=== PATIENT | female | born 1995 | race Caucasian/White ===

== ENCOUNTER 2020-05-27 15:02 | Emergency (ER) | payer OTHER ==
[~2020-05-27] VITALS: Ht 160 cm; Wt 55.9 kg
[~2020-05-27 15:02] MED LIST: MAPA500T2 PO; MOTR200T44 PO
[2020-05-27 17:38] VITALS: BP 128/77
== END 2020-05-27 17:41 | disposition home or self-care (01) ==
LOC: M ED 15:02
DX: F43.0 Acute stress reaction (principal); F32.9 Major depressive disorder, single episode, unspecified

== ENCOUNTER → 2021-11-29 | Outpatient (REF) | payer OTHER | LOC: M LAB REF 17:12 | PROVIDERS: ATTEND Internal Medicine Endocrinology, Diabetes & Metabolism | DX: E04.2 Nontoxic multinodular goiter (principal) ==

== ENCOUNTER 2022-03-29 11:42 | Inpatient (IN) | payer OTHER ==
[~2022-03-29] VITALS: Ht 157.5 cm; Wt 52.4 kg
[2022-03-29 14:10] LABS: HEMATOCRIT 40.1 % (36.0-47.0); HEMOGLOBIN 13.2 g/dl (12.0-15.5); MEAN CORPUSCULAR HGB CONC 32.9 g/dl (32.0-36.5); MEAN CORPUSCULAR VOLUME 88.1 fl (80.0-96.0); PLATELET COUNT, AUTOMATED 398 10^3/uL (150-450); RED BLOOD COUNT 4.55 10^6/uL (4.00-5.40); WHITE BLOOD COUNT 8.8 10^3/uL (4.0-10.0)
[2022-03-29 14:29] LABS: HCG, SERUM QUALITATIVE NEGATIVE (NEGATIVE)
[2022-03-29 14:33] LABS: AMPHETAMINES LEVEL URINE NEGATIVE (NEGATIVE); BARBITURATES URINE NEGATIVE (NEGATIVE); BENZODIAZEPINES URINE NEGATIVE (NEGATIVE); CANNABINOIDS URINE POSITIVE (NEGATIVE); COCAINE METABOLITE URINE NEGATIVE (NEGATIVE); METHADONE URINE NEGATIVE (NEGATIVE); OPIATES URINE NEGATIVE (NEGATIVE); PHENCYCLIDINE URINE NEGATIVE (NEGATIVE)
[2022-03-29 14:46] LABS: ACETAMINOPHEN LEVEL < 2.0 UG/ML (10.0-30.0); ALT/SGPT 27 U/L (12-78); BILIRUBIN,DIRECT < 0.1 MG/DL (0.0-0.2); BILIRUBIN,TOTAL 0.2 MG/DL (0.2-1.0); BLOOD UREA NITROGEN 8 MG/DL (7-18); CALCIUM LEVEL 8.9 MG/DL (8.5-10.1); CARBON DIOXIDE LEVEL 30 MEQ/L (21-32); CHLORIDE LEVEL 107 MEQ/L (98-107); CREATININE FOR GFR 0.67 MG/DL (0.55-1.30); ETHYL ALCOHOL (ETHANOL) < 0.003 % (0.000-0.010); GLOMERULAR FILTRATION RATE > 60.0 (>60); GLUCOSE, FASTING 90 MG/DL (70-100); SALICYLATE LEVEL 2.9 MG/DL (5.0-30.0); SODIUM LEVEL 141 MEQ/L (136-145); THYROID STIMULATING HORMONE 0.106 uIU/ML (0.358-3.740); TOTAL PROTEIN 7.3 GM/DL (6.4-8.2)
[2022-03-29 15:57] LABS: RSV AMPLIFICATION NEGATIVE (NEGATIVE)
[2022-03-29] MEDS ORDERED: NICOTINE 21MG/24HR 1 EA TRANSDERMAL TD ONE (16:05)
[2022-03-29] MEDS ORDERED: DOXY100T PO (16:32)
[2022-03-29] MEDS ORDERED: QUET50TA4 PO (16:32)
[2022-03-29] MEDS ORDERED: MECL-86 PO (16:32)
[2022-03-29] MEDS ORDERED: HYDR-3363 PO (16:32)
[2022-03-29] MEDS ORDERED: CLON-412 PO (16:32)
[2022-03-29] MEDS ORDERED: NICO21DI37 TD (16:32)
[2022-03-29] MEDS ORDERED: QUET300T2 PO (16:32)
[2022-03-29] MEDS ORDERED: HOME MED LIST COMPLETE! XX SCH (16:50)
[2022-03-29] MEDS ORDERED: MOM 30ML SUSPENSION UDC PO PRN (17:55)
[2022-03-29] MEDS ORDERED: MAALOX 30 ML SUSP *UDC PO PRN (17:55)
[2022-03-29] MEDS ORDERED: traZODone 50 MG TAB PO PRN (17:55)
[2022-03-29 20:59] VITALS: BP 118/75
[2022-03-29] MEDS: ACETAMINOPHEN TAB 650MG DOSE (2X325MG) PO PRN (23:43)
[2022-03-30 06:20] VITALS: BP 122/63
[2022-03-30] MEDS: NICOTINE 21MG/24HR 1 EA TRANSDERMAL TD SCH (07:49)
[2022-03-30] MEDS: ACETAMINOPHEN TAB 650MG DOSE (2X325MG) PO PRN (12:51)
[2022-03-30] MEDS: LORazepam 1 MG TAB PO PRN (16:02)
[2022-03-30 18:26] VITALS: BP 126/60
[2022-03-30] MEDS: MIRTAZAPINE 15 MG TAB PO PRN (23:25)
[2022-03-31 07:03] VITALS: BP 115/76
[2022-03-31] MEDS: NICOTINE 21MG/24HR 1 EA TRANSDERMAL TD SCH (07:51)
[2022-03-31] MEDS: SERTRALINE HCL 50 MG TAB PO SCH (07:52)
[2022-03-31] MEDS: OLANZapine ORAL DISINTEGRATING TAB 5MG PO PRN (07:52)
[2022-03-31 07:55] LABS: FREE THYROXINE INDEX 3.3 % (1.3-4.8); THYROID STIMULATING HORMONE 0.529 uIU/ML (0.358-3.740); THYROXINE (T4) 9.3 UG/DL (4.5-12.0)
[2022-03-31] MEDS: LORazepam 1 MG TAB PO PRN (13:33)
[2022-03-31] MEDS: ACETAMINOPHEN TAB 650MG DOSE (2X325MG) PO PRN ×2 (16:03→20:35)
[2022-03-31 18:31] VITALS: BP 133/72
[2022-03-31] MEDS: MIRTAZAPINE 15 MG TAB PO PRN (22:47)
[2022-04-01] MEDS: LORazepam 1 MG TAB PO PRN (02:13)
[2022-04-01 06:56] VITALS: BP 115/58
[2022-04-01] MEDS: SERTRALINE HCL 50 MG TAB PO SCH (09:00)
[2022-04-01] MEDS: NICOTINE 21MG/24HR 1 EA TRANSDERMAL TD SCH (09:01)
[2022-04-01] MEDS: ACETAMINOPHEN TAB 650MG DOSE (2X325MG) PO PRN (10:51)
[2022-04-01 18:33] VITALS: BP 137/66
[2022-04-01] MEDS: IBUPROFEN 600MG TAB PO PRN (21:51)
[2022-04-02 06:55] VITALS: BP 126/69
[2022-04-02] MEDS: NICOTINE 21MG/24HR 1 EA TRANSDERMAL TD SCH (08:11)
[2022-04-02] MEDS: SERTRALINE HCL 50 MG TAB PO SCH (08:11)
[2022-04-02] MEDS: IBUPROFEN 600MG TAB PO PRN (09:11)
[2022-04-02 18:00] VITALS: BP 148/76
[2022-04-02] MEDS ORDERED: traZODone 50 MG TAB PO PRN (21:25)
[2022-04-03] MEDS: OLANZapine ORAL DISINTEGRATING TAB 5MG PO PRN ×2 (03:18→08:03)
[2022-04-03] MEDS: IBUPROFEN 600MG TAB PO PRN ×2 (03:50→21:34)
[2022-04-03] MEDS: NICOTINE 21MG/24HR 1 EA TRANSDERMAL TD SCH (08:02)
[2022-04-03] MEDS: SERTRALINE HCL 50 MG TAB PO SCH (08:32)
[2022-04-03] MEDS: LORazepam 0.5 MG TAB PO PRN ×2 (08:33→20:44)
[2022-04-03 18:00] VITALS: BP 144/76
[2022-04-03] MEDS: MIRTAZAPINE 15 MG TAB PO PRN (23:27)
[2022-04-04 07:03] VITALS: BP 126/64
[2022-04-04] MEDS: SERTRALINE HCL 50 MG TAB PO SCH (08:03)
[2022-04-04] MEDS: NICOTINE 21MG/24HR 1 EA TRANSDERMAL TD SCH (08:04)
[2022-04-04] MEDS: LORazepam 0.5 MG TAB PO PRN (09:49)
[2022-04-04] MEDS: IBUPROFEN 600MG TAB PO PRN ×2 (10:46→19:11)
[2022-04-04 18:00] VITALS: BP 104/58
[2022-04-04] MEDS: MIRTAZAPINE 15 MG TAB PO PRN (22:51)
[2022-04-05] MEDS: LORazepam 0.5 MG TAB PO PRN (05:37)
[2022-04-05 06:33] VITALS: BP 118/57
[2022-04-05] MEDS: SERTRALINE HCL 50 MG TAB PO SCH (08:06)
[2022-04-05] MEDS: NICOTINE 21MG/24HR 1 EA TRANSDERMAL TD SCH (08:06)
[2022-04-05] MEDS: IBUPROFEN 600MG TAB PO PRN ×2 (09:21→19:26)
[2022-04-05] MEDS: hydrOXYzine 50 MG TAB PO PRN (13:08)
[2022-04-05 18:05] VITALS: BP 127/59
[2022-04-05] MEDS: MIRTAZAPINE 15 MG TAB PO PRN (22:46)
[2022-04-05] MEDS: OLANZapine ORAL DISINTEGRATING TAB 5MG PO PRN (23:33)
[2022-04-06 06:33] VITALS: BP 126/60
[2022-04-06] MEDS: SERTRALINE HCL 50 MG TAB PO SCH (08:23)
[2022-04-06] MEDS: NICOTINE 21MG/24HR 1 EA TRANSDERMAL TD SCH (08:23)
[2022-04-06] MEDS: IBUPROFEN 600MG TAB PO PRN (08:23)
[2022-04-06] MEDS ORDERED: HYDR50TA70 PO (08:38)
[2022-04-06] MEDS ORDERED: SERT50TA29 PO (08:38)
[2022-04-06] MEDS ORDERED: MIRT-10 PO (08:38)
[2022-04-06] MEDS ORDERED: IBUP-1022 PO (08:38)
[2022-04-06] MEDS: hydrOXYzine 50 MG TAB PO PRN (09:35)
== END 2022-04-06 11:35 | disposition home or self-care (01) | DRG 756 ==
LOC: M ED 11:42 → M ED INP 17:52 → M PSY 21:52
PROVIDERS: ADMIT Psychiatry & Neurology Psychiatry; ATTEND Psychiatry & Neurology Psychiatry
DX: F41.1 Generalized anxiety disorder (principal); F19.10 Other psychoactive substance abuse, uncomplicated; F43.10 Post-traumatic stress disorder, unspecified; G47.00 Insomnia, unspecified; Z56.0 Unemployment, unspecified; Z62.810 Personal history of physical and sexual abuse in childhood; Z79.899 Other long term (current) drug therapy

== ENCOUNTER 2023-02-12 18:16 | Emergency (ER) | payer OTHER ==
[~2023-02-12] VITALS: Ht 160 cm; Wt 55.8 kg
[~2023-02-12 18:16] MED LIST changes: +CLON-412 PO; +DOXY100T PO; +HYDR-3363 PO; +HYDR50TA70 PO; +IBUP-1022 PO; +LORA-674 PO; +MECL-86 PO; +MIRT-10 PO; +NICO21DI37 TD; +QUET300T2 PO; +QUET50TA4 PO; +SERT-141 PO; +SERT50TA29 PO; +VITMTA PO
[2023-02-12] MEDS ORDERED: DEBL1TAB (18:28)
[2023-02-12] MEDS ORDERED: hydrOXYzine 50 MG TAB PO ONE (20:40)
[2023-02-12] MEDS ORDERED: HYDR50TA70 PO (20:41)
[2023-02-12 20:59] VITALS: BP 128/68; TEMP 98; O2SAT 97
== END 2023-02-12 21:00 | disposition home or self-care (01) ==
LOC: M ED 18:16
DX: F41.1 Generalized anxiety disorder (principal); F19.10 Other psychoactive substance abuse, uncomplicated; F12.90 Cannabis use, unspecified, uncomplicated; Z91.040 Latex allergy status; Z79.3 Long term (current) use of hormonal contraceptives

== ENCOUNTER 2023-06-06 12:51 | Emergency (ER) | payer OTHER ==
[~2023-06-06] VITALS: Ht 160 cm; Wt 59.8 kg
[~2023-06-06 12:51] MED LIST changes: +DEBL1TAB; +LORA-1041 PO; -LORA-674 PO
[2023-06-06 12:53] VITALS: BP 150/78; TEMP 98.4; O2SAT 99
== END 2023-06-06 13:40 | disposition left against medical advice (07) ==
LOC: M ED 12:51
DX: Z53.21 Procedure and treatment not carried out due to patient leaving prior to being seen by health care provider (principal)

== ENCOUNTER 2023-06-07 12:47 | Inpatient (IN) | payer MEDICAID, OTHER ==
[~2023-06-07] VITALS: Ht 160 cm; Wt 59.1 kg
[2023-06-07 13:37] LABS: HEMATOCRIT 40.9 % (36.0-47.0); HEMOGLOBIN 13.8 g/dl (12.0-15.5); MEAN CORPUSCULAR HEMOGLOBIN 30.6 pg (27.0-33.0); MEAN CORPUSCULAR HGB CONC 33.7 g/dl (32.0-36.5); MEAN CORPUSCULAR VOLUME 90.7 fl (80.0-96.0); PLATELET COUNT, AUTOMATED 419 10^3/uL (150-450); RED BLOOD COUNT 4.51 10^6/uL (4.00-5.40); WHITE BLOOD COUNT 13.3 10^3/uL (4.0-10.0)
[2023-06-07] MEDS ORDERED: IBUPROFEN 600MG TAB PO ONE (14:00)
[2023-06-07 14:04] LABS: AMPHETAMINES LEVEL URINE NEGATIVE (NEGATIVE); BARBITURATES URINE NEGATIVE (NEGATIVE); BENZODIAZEPINES URINE NEGATIVE (NEGATIVE); CANNABINOIDS URINE NEGATIVE (NEGATIVE); COCAINE METABOLITE URINE NEGATIVE (NEGATIVE); METHADONE URINE NEGATIVE (NEGATIVE); OPIATES URINE NEGATIVE (NEGATIVE); PHENCYCLIDINE URINE NEGATIVE (NEGATIVE)
[2023-06-07 14:06] LABS: ETHYL ALCOHOL (ETHANOL) 0.004 % (0.000-0.010)
[2023-06-07 14:07] LABS: ACETAMINOPHEN LEVEL < 2.0 UG/ML (10.0-20.0)
[2023-06-07 14:08] LABS: ALBUMIN 4.6 G/DL (3.2-5.2); ALKALINE PHOSPHATASE 55 U/L (46-116); ALT/SGPT 18 U/L (7.0-40); AST/SGOT 12 U/L (<34); BILIRUBIN,DIRECT 0.2 MG/DL (<0.4); BILIRUBIN,TOTAL 0.4 MG/DL (0.3-1.2); BLOOD UREA NITROGEN 5 MG/DL (9-23); CALCIUM LEVEL 9.5 MG/DL (8.5-10.1); CARBON DIOXIDE LEVEL 27 MMOL/L (20-31); CHLORIDE LEVEL 108 MMOL/L (98-107); CREATININE FOR GFR 0.62 MG/DL (0.55-1.30); GLOMERULAR FILTRATION RATE > 60.0 (>60); GLUCOSE, FASTING 111 MG/DL (60-100); SALICYLATE LEVEL < 3.0 MG/DL (<30); SODIUM LEVEL 141 MMOL/L (136-145); TOTAL PROTEIN 7.6 G/DL (5.7-8.2)
[2023-06-07 14:10] LABS: HCG, SERUM QUALITATIVE NEGATIVE (NEGATIVE); THYROID STIMULATING HORMONE 0.371 uIU/ML (0.55-4.78)
[2023-06-07] MEDS ORDERED: KETOROLAC 60MG 2ML VIAL IM ONE (19:45)
[2023-06-07] MEDS ORDERED: NICOTINE 21MG/24HR 1 EA TRANSDERMAL TD ONE (21:15)
[2023-06-07] MEDS ORDERED: LORazepam 2 MG TAB PO ONE (22:05)
[2023-06-08] MEDS: CLINDAMYCIN 150MG CAPSULE PO SCH ×4 (02:06→22:49)
[2023-06-08] MEDS ORDERED: CLINDAMYCIN 150MG CAPSULE PO SCH (09:00)
[2023-06-08] MEDS ORDERED: NICOTINE 21MG/24HR 1 EA TRANSDERMAL TD SCH (09:00)
[2023-06-08] MEDS ORDERED: IBUPROFEN 600MG TAB PO ONE (09:15)
[2023-06-08] MEDS ORDERED: MED REC IN PROGRESS XX SCH (09:20)
[2023-06-08] MEDS ORDERED: HOME MED LIST COMPLETE! XX SCH (10:00)
[2023-06-08] MEDS ORDERED: OLANZapine ORAL DISINTEGRATING TAB 5MG PO PRN (14:10)
[2023-06-08] MEDS ORDERED: diphenhydrAMINE 25MG CAP PO PRN (14:10)
[2023-06-08] MEDS ORDERED: MOM 30ML SUSPENSION UDC PO PRN (14:10)
[2023-06-08] MEDS ORDERED: MAALOX 30 ML SUSP *UDC PO PRN (14:10)
[2023-06-08] MEDS: IBUPROFEN 400MG TAB PO PRN (16:10)
[2023-06-08] MEDS: ACETAMINOPHEN TAB 650MG DOSE (2X325MG) PO PRN (19:44)
[2023-06-08] MEDS: traZODone 50 MG TAB PO PRN (21:12)
[2023-06-09 06:40] VITALS: BP 122/66; TEMP 98.1; O2SAT 100
[2023-06-09] MEDS: CLINDAMYCIN 150MG CAPSULE PO SCH (08:14)
[2023-06-09] MEDS ORDERED: SERTRALINE HCL 25 MG TABLET PO ONE (09:00)
[2023-06-09] MEDS: OLANZapine 2.5MG TABLET PO SCH ×2 (09:37→20:41)
[2023-06-09] MEDS: NICOTINE 14 MG/24 HR TRANSDERMAL TD SCH (10:04)
[2023-06-09] MEDS: IBUPROFEN 400MG TAB PO PRN (10:20)
[2023-06-09] MEDS ORDERED: IBUPROFEN 600MG TAB PO ONE (15:00)
[2023-06-09 18:29] VITALS: BP 120/66; TEMP 98.6
[2023-06-09] MEDS: traZODone 50 MG TAB PO PRN (20:41)
[2023-06-09] MEDS: AUGMENTIN 875 MG TAB PO SCH (20:41)
[2023-06-10 06:06] VITALS: BP 109/58; TEMP 98.9; O2SAT 100
[2023-06-10] MEDS: IBUPROFEN 400MG TAB PO PRN ×2 (06:11→19:49)
[2023-06-10] MEDS: SERTRALINE HCL 50 MG TAB PO SCH (08:38)
[2023-06-10] MEDS: OLANZapine 2.5MG TABLET PO SCH ×2 (08:38→20:37)
[2023-06-10] MEDS: AUGMENTIN 875 MG TAB PO SCH ×2 (08:38→20:37)
[2023-06-10] MEDS: NICOTINE 14 MG/24 HR TRANSDERMAL TD SCH (09:39)
[2023-06-10] MEDS: ACETAMINOPHEN TAB 650MG DOSE (2X325MG) PO PRN ×2 (13:44→13:50)
[2023-06-10 18:01] VITALS: BP 134/71; TEMP 98.3; O2SAT 98
[2023-06-10] MEDS: traZODone 50 MG TAB PO PRN (20:37)
[2023-06-11 06:00] VITALS: BP 118/56; TEMP 97.6; O2SAT 99
[2023-06-11] MEDS: IBUPROFEN 400MG TAB PO PRN ×2 (06:22→20:16)
[2023-06-11] MEDS: SERTRALINE HCL 50 MG TAB PO SCH (09:16)
[2023-06-11] MEDS: AUGMENTIN 875 MG TAB PO SCH ×2 (09:16→20:16)
[2023-06-11] MEDS: NICOTINE 14 MG/24 HR TRANSDERMAL TD SCH (09:16)
[2023-06-11] MEDS: OLANZapine 2.5MG TABLET PO SCH ×2 (09:16→20:16)
[2023-06-11] MEDS: ACETAMINOPHEN TAB 650MG DOSE (2X325MG) PO PRN (14:34)
[2023-06-11 18:23] VITALS: BP 117/56; TEMP 98.2; O2SAT 99
[2023-06-12 06:22] VITALS: BP 136/63; TEMP 97.7; O2SAT 98
[2023-06-12] MEDS: AUGMENTIN 875 MG TAB PO SCH ×2 (08:19→21:15)
[2023-06-12] MEDS: OLANZapine 2.5MG TABLET PO SCH ×2 (08:20→21:15)
[2023-06-12] MEDS: SERTRALINE HCL 50 MG TAB PO SCH (08:20)
[2023-06-12] MEDS: NICOTINE 14 MG/24 HR TRANSDERMAL TD SCH (08:21)
[2023-06-12] MEDS: ACETAMINOPHEN TAB 650MG DOSE (2X325MG) PO PRN ×2 (12:10→19:13)
[2023-06-12] MEDS: IBUPROFEN 400MG TAB PO PRN (14:58)
[2023-06-12 17:49] VITALS: BP 110/64; TEMP 97.8; O2SAT 97
[2023-06-12 17:51] VITALS: BP 155/67; TEMP 98.6; O2SAT 98
[2023-06-13 07:03] VITALS: BP 149/66; TEMP 98.1; O2SAT 98
[2023-06-13] MEDS: NICOTINE 14 MG/24 HR TRANSDERMAL TD SCH (09:45)
[2023-06-13] MEDS: OLANZapine 2.5MG TABLET PO SCH ×2 (09:45→20:25)
[2023-06-13] MEDS: AUGMENTIN 875 MG TAB PO SCH ×2 (09:45→20:25)
[2023-06-13] MEDS: SERTRALINE HCL 50 MG TAB PO SCH (09:45)
[2023-06-13 10:28] VITALS: BP 149/66; TEMP 98.1; O2SAT 98
[2023-06-13] MEDS: IBUPROFEN 400MG TAB PO PRN ×2 (13:04→19:17)
[2023-06-13 16:07] VITALS: BP 138/64; TEMP 98.8; O2SAT 100
[2023-06-14 06:41] VITALS: BP 116/69; TEMP 98.2; O2SAT 99
[2023-06-14] MEDS: SERTRALINE HCL 50 MG TAB PO SCH (08:46)
[2023-06-14] MEDS: AUGMENTIN 875 MG TAB PO SCH ×2 (08:46→20:21)
[2023-06-14] MEDS: OLANZapine 2.5MG TABLET PO SCH ×2 (08:46→20:21)
[2023-06-14] MEDS: NICOTINE 14 MG/24 HR TRANSDERMAL TD SCH (08:47)
[2023-06-14] MEDS ORDERED: AMOX875T2 PO (09:34)
[2023-06-14] MEDS ORDERED: SERT50TA29 PO (09:34)
[2023-06-14] MEDS ORDERED: OLAN2.5T25 PO (09:34)
[2023-06-14 09:55] VITALS: BP 116/69; TEMP 98.2; O2SAT 99
[2023-06-14] MEDS: IBUPROFEN 400MG TAB PO PRN ×2 (10:18→20:22)
[2023-06-14 16:22] VITALS: BP 126/70; TEMP 98.3; O2SAT 97
[2023-06-14] MEDS: traZODone 50 MG TAB PO PRN (22:50)
[2023-06-15 06:22] VITALS: BP 117/69; TEMP 98.5; O2SAT 99
[2023-06-15] MEDS: SERTRALINE HCL 50 MG TAB PO SCH (08:23)
[2023-06-15] MEDS: AUGMENTIN 875 MG TAB PO SCH (08:23)
[2023-06-15] MEDS: OLANZapine 2.5MG TABLET PO SCH (08:23)
[2023-06-15] MEDS: NICOTINE 14 MG/24 HR TRANSDERMAL TD SCH ×2 (09:00→12:44)
[2023-06-15] MEDS: IBUPROFEN 400MG TAB PO PRN (12:43)
== END 2023-06-15 13:19 | disposition home or self-care (01) | DRG 751 ==
LOC: M ED 13:47 → M PSY 06-08 16:20
PROVIDERS: ADMIT Student in an Organized Health Care Education/Training Program; ATTEND Student in an Organized Health Care Education/Training Program
DX: F29 Unspecified psychosis not due to a substance or known physiological condition (principal); R45.851 Suicidal ideations; Z56.0 Unemployment, unspecified; F41.1 Generalized anxiety disorder; F15.91 Other stimulant use, unspecified, in remission; Z91.52 Personal history of nonsuicidal self-harm; Z91.040 Latex allergy status; Z20.822 Contact with and (suspected) exposure to COVID-19